=== PATIENT | male | born 2000 | race Caucasian/White ===

== ENCOUNTER 2022-12-14 09:49 | Emergency (ER) | payer BC ==
[~2022-12-14] VITALS: Ht 162.6 cm; Wt 72.6 kg
[2022-12-14] MEDS ORDERED: IV NS 0.9% 1,000 ML BAG IV ONE (10:30)
[2022-12-14] MEDS ORDERED: KETOROLAC TROMETHAMINE INJ 30 MG/ML VIAL IV ONE (10:30)
[2022-12-14] MEDS ORDERED: KETOROLAC TROMETHAMINE INJ 30 MG/ML VIAL ONE (10:46)
[2022-12-14] MEDS ORDERED: IV NS 0.9% 250 ML IV ONE (10:56)
[2022-12-14] MEDS ORDERED: IOHEXOL-300 100 ML VIAL IV ONE (10:56)
[2022-12-14 11:10] LABS: INR 1.04 (0.91-1.10); PARTIAL THROMBOPLASTIN TIME 29.2 SEC (24.3-34.3); PROTHROMBIN TIME 10.9 SECS (9.2-11.1)
[2022-12-14 11:23] LABS: CALCIUM, SERUM 9.3 mg/dL (8.5-10.1); POTASSIUM 3.9 mmol/L (3.5-5.1)
[2022-12-14 11:26] LABS: BASOPHILS % (AUTO) 0.5 % (0.0-2.0); EOSINOPHILS # (AUTO) 0.1 K/uL (0.0-0.7); EOSINOPHILS % (AUTO) 0.9 % (0.0-6.0); HEMATOCRIT 43 % (39-51); HEMOGLOBIN 14.6 g/dL (13.5-17.5); LYMPHOCYTES # (AUTO) 1.5 K/uL (0.8-4.8); LYMPHOCYTES % (AUTO) 22.2 % (20.0-44.0); MEAN CORPUSCULAR HEMOGLOBIN 31 PG (26.0-33.0); MEAN CORPUSCULAR HGB CONC 34 g/dl (31.0-36.0); MEAN CORPUSCULAR VOLUME 90 fL (80-96); MONOCYTES # (AUTO) 0.4 K/uL (0.1-1.30); MONOCYTES % (AUTO) 5.4 % (2.0-12.0); NEUTROPHILS # (AUTO) 4.8 K/uL (1.8-8.9); PLATELET COUNT (AUTO) 294 K/uL (150-450); RED BLOOD CELL COUNT(AUTO) 4.71 MIL/uL (4.5-6.0); RED CELL DISTRIBUTION WIDTH 12.8 % (11.5-15.0); WHITE BLOOD COUNT (AUTO) 6.7 K/uL (4.3-11.0)
[2022-12-14] MEDS ORDERED: HYDR453.3 TP ×2 (12:10→12:26)
[2022-12-14 12:46] VITALS: BP 122/81; TEMP 98.2; O2SAT 100
== END 2022-12-14 12:46 | disposition home or self-care (01) ==
LOC: ER 09:54
DX: K62.89 Other specified diseases of anus and rectum (principal); Z79.899 Other long term (current) drug therapy
CPT/HCPCS: 99285; 96374; 72193; 96361; 85025; 80048; 36415; 85730; J1885; J7030; J7050; Q9967